=== PATIENT | female | born 1985 | race Caucasian/White ===

== ENCOUNTER 2017-06-11 21:08 | Emergency (ER) | payer SELFPAY ==
[~2017-06-11] VITALS: Ht 170.2 cm; Wt 100.0 kg
[2017-06-11 22:48] VITALS: BP 123/75
== END 2017-06-11 22:51 | disposition home or self-care (01) ==
LOC: EMS 21:11
DX: R55 Syncope and collapse (principal); I83.891 Varicose veins of right lower extremity with other complications; J45.909 Unspecified asthma, uncomplicated
CPT/HCPCS: 99283

== ENCOUNTER 2018-01-31 08:40 | Emergency (ER) | payer SELFPAY ==
[~2018-01-31] VITALS: Ht 170.2 cm; Wt 108.0 kg
[2018-01-31] MEDS ORDERED: KETOROLAC TROMETHAMINE 60 MG/2 ML VIAL IM ONE (10:45)
[2018-01-31] MEDS ORDERED: METHOCARBAMOL 500 MG TABLET PO ONE (10:45)
[2018-01-31 11:51] VITALS: BP 126/80
== END 2018-01-31 12:06 | disposition home or self-care (01) ==
LOC: EMS 08:42
DX: M54.6 Pain in thoracic spine (principal); J45.909 Unspecified asthma, uncomplicated; V49.50XA Passenger injured in collision with unspecified motor vehicles in traffic accident, initial encounter; Y93.89 Activity, other specified; Y92.89 Other specified places as the place of occurrence of the external cause; Y99.8 Other external cause status
CPT/HCPCS: 96372; 99283; J1885